=== PATIENT | male | born 1955 | race Caucasian/White ===

== ENCOUNTER 2025-03-08 00:22 | Emergency (ER) | payer OTHER ==
[2025-03-08] MEDS ORDERED: HYDROcodone/Acetaminophen 10/325 mg Tablet ONE (00:44)
== END 2025-03-08 01:10 ==
LOC: NAV ERS 00:22 → EEVIPCON 00:22 → NAV ERS 01:10
DX: S83.92XA Sprain of unspecified site of left knee, initial encounter (principal); E11.40 Type 2 diabetes mellitus with diabetic neuropathy, unspecified; I10 Essential (primary) hypertension; X50.9XXA Other and unspecified overexertion or strenuous movements or postures, initial encounter; Z79.82 Long term (current) use of aspirin; Z79.84 Long term (current) use of oral hypoglycemic drugs; Z79.899 Other long term (current) drug therapy
CPT/HCPCS: 99283